=== PATIENT | male | born 2000 | race Caucasian/White ===

== ENCOUNTER 2023-07-03 23:51 | Emergency (ER) | payer SELFPAY ==
[~2023-07-03] VITALS: Ht 167.6 cm; Wt 61.0 kg
[2023-07-04 00:20] VITALS: BP 114/49; O2SAT 100
[2023-07-04 01:13] VITALS: PULSE 63; RESP 16; TEMP 99
== END 2023-07-04 01:15 | disposition home or self-care (01) ==
LOC: ER 23:51
DX: T21.13XA Burn of first degree of upper back, initial encounter (principal); T31.0 Burns involving less than 10% of body surface; X08.8XXA Exposure to other specified smoke, fire and flames, initial encounter; Y93.89 Activity, other specified; Y92.89 Other specified places as the place of occurrence of the external cause; Y99.8 Other external cause status
CPT/HCPCS: 16000; 99282